=== PATIENT | male | born 1960 | race American Indian/Alaskan Native ===

== ENCOUNTER → 2017-05-09 | Outpatient (CLI) | payer OTHER ==
[~2017-05-09] MED LIST: Aspir-Low81 MG PO; CALCA500CH PO; CYCL10; ESCI10; FURO40 PO; GABA100 PO; HYDACE5 PO; HYDROCODON-ACE1 EAC3 PO; IBUP400 PO; LORA1 PO; OLME20-12.; OXYC10TA19; OXYC15ER PO; OXYC5 PO; RXCLIN PO; SULTRIDS PO; VARE1 PO
[2017-05-09 13:31] LABS: U Amphetamine Screen Not Detected; U Barbituate Screen Not Detected; U Benzodiazapine Screen Not Detected; U Buprenorphine Screen Not Detected; U Cannabinoids Screen Not Detected; U Cocaine Screen Not Detected; U Methadone Screen Not Detected; U Methamphetamine Screen Not Detected; U Opiates Screen Not Detected; U Oxycodone Screen DETECTED; U Phencyclidine Screen Not Detected; U Propoxyphene Screen Not Detected
[2017-05-10 20:08] LABS: Codeine Not Detected (NOTDET); Hydrocodone Not Detected (NOTDET); Hydromorphone Not Detected (NOTDET); Morphine Not Detected (NOTDET); Norhydrocodone Not Detected (NOTDET); Noroxycodone Not Detected (NOTDET)
== END ==
LOC: LAB SHORT 09:30
PROVIDERS: Internal Medicine Hematology & Oncology
DX: Z51.81 Encounter for therapeutic drug level monitoring (principal); Z79.899 Other long term (current) drug therapy
CPT/HCPCS: G0480

== ENCOUNTER → 2017-09-01 | Outpatient (CLI) | payer OTHER ==
[~2017-09-01] MED LIST changes: -CYCL10; -FURO40 PO; -OXYC5 PO; -VARE1 PO
[2017-09-01 18:45] LABS: U Amphetamine Screen DETECTED; U Barbituate Screen Not Detected; U Benzodiazapine Screen Not Detected; U Buprenorphine Screen Not Detected; U Cannabinoids Screen Not Detected; U Cocaine Screen Not Detected; U Methadone Screen Not Detected; U Methamphetamine Screen DETECTED; U Opiates Screen Not Detected; U Oxycodone Screen DETECTED; U Phencyclidine Screen Not Detected; U Propoxyphene Screen Not Detected
== END | disposition home or self-care (01) ==
LOC: LAB 18:21 → LAB SHORT 18:21
PROVIDERS: Internal Medicine Hematology & Oncology
DX: Z51.81 Encounter for therapeutic drug level monitoring (principal); Z79.899 Other long term (current) drug therapy
CPT/HCPCS: G0480

== ENCOUNTER → 2017-09-11 | Outpatient (CLI) | payer OTHER ==
[2017-09-11 17:34] LABS: U Amphetamine Screen DETECTED; U Barbituate Screen Not Detected; U Benzodiazapine Screen Not Detected; U Buprenorphine Screen Not Detected; U Cannabinoids Screen DETECTED; U Cocaine Screen Not Detected; U Methadone Screen Not Detected; U Methamphetamine Screen DETECTED; U Opiates Screen Not Detected; U Oxycodone Screen DETECTED; U Phencyclidine Screen Not Detected; U Propoxyphene Screen Not Detected
== END ==
LOC: LAB SHORT 16:51 → LAB 16:51
PROVIDERS: Internal Medicine Hematology & Oncology
DX: Z79.899 Other long term (current) drug therapy (principal)

== ENCOUNTER → 2017-09-29 | Outpatient (CLI) | payer OTHER ==
[2017-09-29 13:23] LABS: U Amphetamine Screen Not Detected; U Barbituate Screen Not Detected; U Benzodiazapine Screen Not Detected; U Buprenorphine Screen Not Detected; U Cannabinoids Screen DETECTED; U Cocaine Screen Not Detected; U Methadone Screen Not Detected; U Methamphetamine Screen Not Detected; U Opiates Screen DETECTED; U Oxycodone Screen DETECTED; U Phencyclidine Screen Not Detected; U Propoxyphene Screen Not Detected
== END | disposition home or self-care (01) ==
LOC: LAB 12:28 → LAB SHORT 12:28
PROVIDERS: Internal Medicine Hematology & Oncology
DX: Z51.81 Encounter for therapeutic drug level monitoring (principal); Z79.899 Other long term (current) drug therapy

== ENCOUNTER 2020-10-22 18:01 | Inpatient (IN) | payer OTHER ==
[~2020-10-22] VITALS: Ht 182.9 cm; Wt 78.6 kg
[~2020-10-22 18:01] MED LIST changes: +CYCL10; +FURO40 PO; +OXYC5 PO; +VARE1 PO
[2020-10-22 21:23] LABS: BASOPHILS ABSOLUTE AUTO 0.05 K/mm3 (0.00-0.23); BASOPHILS PERCENT AUTO 1 % (0-2); EOSINOPHILS ABSOLUTE AUTO 0.08 K/mm3 (0.00-0.68); EOSINOPHILS PERCENT AUTO 1 % (0-6); Hematocrit 41.4 % (37.0-53.0); Hemoglobin 14.1 g/dL (13.5-17.5); IMMATURE GRAN ABSOLUTE AUTO 0.04 K/mm3 (0.00-0.10); IMMATURE GRAN PERCENT AUTO 1 % (0-1); LYMPHOCYTES ABSOLUTE AUTO 1.23 K/mm3 (0.84-5.20); LYMPHOCYTES PERCENT AUTO 14 % (21-46); MONOCYTES ABSOLUTE AUTO 0.79 K/mm3 (0.16-1.47); MONOCYTES PERCENT AUTO 9 % (4-13); Mean Corpuscular HGB 29.6 pg (26.0-34.0); Mean Corpuscular HGB Conc 34.1 g/dL (31.5-36.5); Mean Corpuscular Volume 87 fL (80-100); Mean Platelet Volume 8.4 fL (9.1-12.4); NEUTROPHILS ABSOLUTE AUTO 6.44 K/mm3 (1.96-9.15); NEUTROPHILS PERCENT AUTO 75 % (41-73); Platelet Count 298 K/mm3 (150-400); RDW Coefficient Variation 12.9 % (11.7-14.2); RDW Standard Deviation 40.8 fL (35.1-46.3); Red Blood Cell Count 4.77 M/mm3 (4.30-5.90); White Blood Cell Count 8.63 K/mm3 (4.00-11.30)
[2020-10-22 21:45] LABS: Alanine Aminotransfer (ALT/SGP 39 U/L (12-78); Albumin, Blood 3.5 g/dL (3.4-5.0); Albumin/Globulin Ratio 0.9 (0.8-1.8); Alk Phos 86 U/L (50-136); Anion Gap 4 mmol/L (6-16); Aspartate Aminotrans (AST/SGOT 21 U/L (12-37); Bilirubin, Total 0.5 mg/dL (0.1-1.0); Blood Urea Nitrogen 12 mg/dL (8-24); Bun/Creatinine Ratio 11.4 (12.0-20.0); CO2, Blood 26 mmol/L (21-32); Calcium, Blood 8.8 mg/dL (8.5-10.1); Chloride, Blood 105 mmol/L (98-108); Creatinine, Blood 1.05 mg/dL (0.60-1.20); Ethanol (Alcohol), Blood, Med <3 mg/dL; Globulin, Blood 3.7 g/dL (2.2-4.0); Glomerular Filtration Rate >60 (60-); Glucose, Blood 84 mg/dL (70-99); Magnesium, Blood 1.9 mg/dL (1.6-2.4); Potassium, Blood 4.2 mmol/L (3.5-5.5); Sodium, Blood 135 mmol/L (136-145); Total Protein, Blood 7.2 g/dL (6.4-8.2); Troponin I <0.015 ng/mL (0.000-0.040)
[2020-10-22 22:23] LABS: SARS-Cov-2 (COVID-19) PCR, MMC NEGATIVE (NEGATIVE)
[2020-10-22 23:01] LABS: Source, Urine Voided
[2020-10-22 23:08] LABS: Appearance, Urine Clear (Clear); Bilirubin, Urine Neg (Neg); Blood, Urine 1+ (Neg); Color, Urine Yellow (P-Yellow); Glucose Qualitative, Urine Neg (Neg); Ketones, Urine Neg (Neg); Leukocyte Esterase, Urine Neg (Neg); Nitrite, Urine Neg (Neg); Protein, Urine 1+ (Neg); Specific Gravity, Urine 1.005 (1.003-1.022); Urobilinogen, Urine NORM (Normal)
[2020-10-22 23:16] LABS: Bacteria Mod /hpf; Red Blood Cells, Urine 0-2 /hpf (0-2); Squamous Epithelial Cells Few /hpf (Few); White Blood Cells, Urine 0-2 /hpf (0-5)
--- NOTE | 2020-10-22 23:16 | NUR ---
ADMIT PT ARRIVED TO 324 VIA STRETCHER @[id number]. DX c ACUTE CVA. ORIENTED TO & CALL LIGHT. WCTM.
[2020-10-22 23:20] LABS: U Amphetamine Screen DETECTED; U Barbituate Screen Not Detected; U Benzodiazapine Screen Not Detected; U Buprenorphine Screen Not Detected; U Cannabinoids Screen DETECTED; U Cocaine Screen Not Detected; U Methadone Screen Not Detected; U Methamphetamine Screen DETECTED; U Opiates Screen Not Detected; U Oxycodone Screen Not Detected; U Phencyclidine Screen Not Detected; U Propoxyphene Screen Not Detected
--- NOTE | 2020-10-23 04:49 | NUR ---
SHIFT SUMMARY AOX3. ANSWERS QUESTIONS APPROPRIATE, FOLLOWS DIRECTIONS. SLURRED SPEECH @TIMES. TELE NSR c BBB @96. BP ELEVATED @191/114 WHEN ARRIVED TO FLOOR, NOTE STATES TO ALLOW FOR PERMISSIVE HTN, THIS AM BP HAS DECREASED TO 158/97. REPORTS NEW N/T TO L SIDE. L ARM DRIFTS DOWN WHEN ASKED TO RAISE BUE. 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 PT UNABLE TO LIFT LLE UP OFF BED, WEAK. SLUMPS OVER TO L SIDE WHEN SITTING UP IN BED, BEDREST @THIS TIME. 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 NPO FOR SPEECH EVAL TODAY. CALL LIGHT & BED ALARM IN PLACE FOR SAFETY. WCTM.
[2020-10-23 05:24] LABS: Hematocrit 43.1 % (37.0-53.0); Hemoglobin 14.4 g/dL (13.5-17.5); Mean Corpuscular HGB Conc 33.4 g/dL (31.5-36.5); Mean Corpuscular Volume 87 fL (80-100); Mean Platelet Volume 8.6 fL (9.1-12.4); Platelet Count 288 K/mm3 (150-400); RDW Standard Deviation 41.5 fL (35.1-46.3); Red Blood Cell Count 4.96 M/mm3 (4.30-5.90)
[2020-10-23 05:54] LABS: Anion Gap 5 mmol/L (6-16); Blood Urea Nitrogen 12 mg/dL (8-24); Bun/Creatinine Ratio 11.1 (12.0-20.0); CHOL/HDL RATIO 5.9; CO2, Blood 27 mmol/L (21-32); Calcium, Blood 8.7 mg/dL (8.5-10.1); Chloride, Blood 107 mmol/L (98-108); Cholesterol 206 mg/dL (50-200); Creatinine, Blood 1.08 mg/dL (0.60-1.20); Glomerular Filtration Rate >60 (60-); Glucose, Blood 82 mg/dL (70-99); HDL Cholesterol 35 mg/dL (>39); LDL/HDL RATIO 3.6; Low Density Lipoprotein Chol 128 mg/dL (0-110); Potassium, Blood 3.8 mmol/L (3.5-5.5); Sodium, Blood 139 mmol/L (136-145); Triglycerides 217 mg/dL (30-160); Very Low Density Lipoprot Chol 43 mg/dL (6-32)
--- NOTE | 2020-10-23 13:09 | NUR ---
PT ON MRI
--- NOTE | 2020-10-23 18:04 | NUR ---
SHIFT SUMMARY PT ALERT ORIENTED; CALLS APPROPRIATELY VERY IRRITABLE. ST EVALUATED HIM TODAY. MEDICATED ONCE FOR HEADACHE AND HAD AN MRI TODAY. PT WILL NEED PT/OT EVAL. BED IS IN THE LOWEST POSITION AND CALL LIGHT WITHIN REACH. BED ALARM IS ON DUE TO FALL RISK RELATED TO CVA DEFICIT ON HIS L SIDE WEAKNESS
--- NOTE | 2020-10-24 05:45 | NUR ---
SHIFT SUMMARY NO ACUTE CHANGES THIS SHIFT, NO C/O ANY KIND, A&O, COOPERATIVE W/CARE, SLEPT T/O THE NIGHT & SLEEPING AT THIS TIME, CALL LIGHT IN REACH, WILL CONT TO MONITOR UNTIL REPORT GIVEN TO DAY RN.
[2020-10-24] MEDS ORDERED: ATOR80 PO ×2 (12:08→12:09)
[2020-10-24] MEDS ORDERED: METO25 PO (12:09)
[2020-10-24] MEDS ORDERED: Acetaminophen650 M1 PO (12:10)
[2020-10-24] MEDS ORDERED: ASPI81CH PO (12:10)
[2020-10-24] MEDS ORDERED: Prinivil10 MG PO (12:12)
--- NOTE | 2020-10-24 14:31 | NUR ---
PT DISCHARGE TO HOME VIA WC WITH DISCHARGE VOLUNTEER. IV DC'D. MEDS FAXED TO [facility] AND SCHEDULED FOR FOLLOW UP APPOINTMENT THIS WEEK .PT INSTRUCTED TO FU TO PCP AND HAND THE HARD SCRIPT FOR PT/OT/ST THAT WAS PROVIDED. PT WITH BROTHER. PT ALSO EDUCATED ABOUT THE RESOURCES AND METH ABUSE WITH PRINTED PACKETS
== END 2020-10-24 14:20 | disposition home or self-care (01) | DRG 65 ==
LOC: ER 18:01 → MEDS 22:17
PROVIDERS: Emergency Medicine; Nurse Practitioner Acute Care; ADMIT Internal Medicine
DX: I63.81 Other cerebral infarction due to occlusion or stenosis of small artery (principal); G81.94 Hemiplegia, unspecified affecting left nondominant side; Z20.822 Contact with and (suspected) exposure to COVID-19; Z66 Do not resuscitate; I10 Essential (primary) hypertension; F15.10 Other stimulant abuse, uncomplicated; F17.210 Nicotine dependence, cigarettes, uncomplicated; R13.10 Dysphagia, unspecified; R47.81 Slurred speech; Z87.19 Personal history of other diseases of the digestive system; Z98.890 Other specified postprocedural states; Z85.46 Personal history of malignant neoplasm of prostate; Z91.19 Patient's noncompliance with other medical treatment and regimen; Z90.79 Acquired absence of other genital organ(s); Z71.51 Drug abuse counseling and surveillance of drug abuser; Z71.6 Tobacco abuse counseling
CPT/HCPCS: 36415; 70450; 70496; 70498; 70551; 71045; 80048; 80053; 80061; 81001; 83036; 83735; 84484; 85025; 85027; 87077; 87086; 87186; 92610; 93005; 93010; 93306; 97110; 97112; 97116; 97162; 97166; 99285-25; A9270; G0480; J1650; J7030; Q9967; U0004